=== PATIENT | female | born 1975 | race African-American/Black ===

== ENCOUNTER 2025-07-16 20:51 | Inpatient (IN) | payer SELFPAY ==
[~2025-07-16 20:51] MED LIST: Iopamidol-370 76% 500 ML MDV (1 ML CHARGE) ONE
[2025-07-16 21:27] LABS: INR-International Normal Ratio 0.9; Prothrombin Time 12.6 sec (12.0-14.7)
[2025-07-16 21:28] LABS: PTT 26.5 sec (22.9-36.1)
[2025-07-16 21:31] LABS: BHCG - Serum Negative (NEGATIVE); Pregs Control Background? CLEAR/WHITE (CLR/WHITE); Pregs Control Bar Appear? YES (CONTROL BAR)
[2025-07-16 21:32] LABS: #Basophils 0.04 10x3/uL (0.0-0.2); #Eosinophils 0.13 10x3/uL (0.0-0.7); #Monocytes 0.41 10x3/uL (0.11-0.59); #Neutrophils 4.07 10x3/uL (1.40-6.50); %Basophils 0.5 % (0.0-1.0); %Eosinophils 1.8 % (0.0-10.0); %Lymphocytes 35.9 % (21.0-51.0); %Monocytes 5.6 % (0.0-10.0); %Neutrophils 55.9 % (42.0-75.0); Hematocrit 43.5 % (36.0-47.0); Hemoglobin 13.6 g/dL (12.0-16.0); Mean Corpuscular Hemoglobin 26.6 pg (27.0-31.0); Mean Corpuscular Volume 85.1 fL (78.0-98.0); Platelet Count 220 10x3/uL (130-400); Red Blood Cell (RBC) Count 5.11 mill/uL (4.20-5.40); White Blood Cell (WBC) Count 7.29 10x3/uL (4.8-10.8)
[2025-07-16 21:35] LABS: ALT (SGPT) 15 U/L (Less than 34); AST (SGOT) 20 U/L (11-34); Albumin 4.1 g/dL (3.1-4.5); Alkaline Phosphatase 71 U/L (40-110); Anion Gap 18 mmol/L (10-20); BUN (Urea Nitrogen) 11 mg/dL (7.0-18.7); Bilirubin, Total 0.3 mg/dL (0.3-1.2); Calc. Creatinine Clearance 0 mL/min (70-130); Calcium 10.1 mg/dL (7.8-10.44); Carbon Dioxide 23 mmol/L (22-29); Chloride 104 mmol/L (98-107); Globulin 4.4 g/dL (2.4-3.5); Glucose 94 mg/dL (70-105); Potassium 4.1 mmol/L (3.5-5.1); Sodium 141 mmol/L (136-145)
[2025-07-16] MEDS ORDERED: diphenhydrAMINE 50 MG/ML VIAL ONE (21:48)
[2025-07-17] MEDS ORDERED: Ondansetron PF 4 MG/2 ML Vial ONE
[2025-07-17] MEDS ORDERED: Heparin 5,000 UNITS/ML VIAL ONE (00:45)
[2025-07-17 02:23] VITALS: BMI 43.9
[2025-07-17] MEDS ORDERED: Heparin 10,000 UNITS/ 10 ML VIAL SLOW IVP SCH (03:00)
[2025-07-17] MEDS: Melatonin 3 MG TAB PO SCH (03:05)
[2025-07-17 06:50] LABS: #Basophils 0.03 10x3/uL (0.0-0.2); #Eosinophils 0.16 10x3/uL (0.0-0.7); #Monocytes 0.40 10x3/uL (0.11-0.59); #Neutrophils 2.70 10x3/uL (1.40-6.50); %Basophils 0.5 % (0.0-1.0); %Eosinophils 2.5 % (0.0-10.0); %Lymphocytes 48.3 % (21.0-51.0); %Monocytes 6.3 % (0.0-10.0); %Neutrophils 42.1 % (42.0-75.0); Hematocrit 40.1 % (36.0-47.0); Hemoglobin 12.5 g/dL (12.0-16.0); Mean Corpuscular Hemoglobin 26.9 pg (27.0-31.0); Mean Corpuscular Volume 86.2 fL (78.0-98.0); Platelet Count 193 10x3/uL (130-400); Red Blood Cell (RBC) Count 4.65 mill/uL (4.20-5.40); White Blood Cell (WBC) Count 6.40 10x3/uL (4.8-10.8)
[2025-07-17 07:07] LABS: ALT (SGPT) 11 U/L (Less than 34); AST (SGOT) 15 U/L (11-34); Albumin 3.4 g/dL (3.1-4.5); Alkaline Phosphatase 65 U/L (40-110); Anion Gap 14 mmol/L (10-20); BUN (Urea Nitrogen) 10 mg/dL (7.0-18.7); Bilirubin, Total 0.1 mg/dL (0.3-1.2); Calc. Creatinine Clearance 145 mL/min (70-130); Calcium 9.0 mg/dL (7.8-10.44); Carbon Dioxide 22 mmol/L (22-29); Chloride 106 mmol/L (98-107); Globulin 3.4 g/dL (2.4-3.5); Glucose 159 mg/dL (70-105); Potassium 4.0 mmol/L (3.5-5.1); Sodium 138 mmol/L (136-145)
[2025-07-17 07:22] LABS: PTT 243.6 sec (22.9-36.1)
[2025-07-17] MEDS: Famotidine 20 MG TAB PO SCH (08:27)
[2025-07-17] MEDS: Famotidine/PF 20 mg/2ml Vial SLOW IVP SCH (08:28)
[2025-07-17] MEDS ORDERED: Cyclobenzaprine 10 MG TAB PO PRN (08:54)
[2025-07-17] MEDS: Senokot S 8.6-50 MG TAB PO SCH (09:31)
[2025-07-17] MEDS: Ondansetron PF 4 MG/2 ML Vial IVP PRN (11:51)
[2025-07-17] MEDS: HYDROcodone/Acetaminophen 5/325 mg Tablet PO PRN (15:37)
[2025-07-18] MEDS: Acetaminophen 325 MG TAB PO PRN (03:31)
[2025-07-18 07:14] LABS: #Basophils Less than 0.03 10x3/uL (0.0-0.2); #Eosinophils 0.11 10x3/uL (0.0-0.7); #Monocytes 0.34 10x3/uL (0.11-0.59); #Neutrophils 2.53 10x3/uL (1.40-6.50); %Basophils 0.4 % (0.0-1.0); %Eosinophils 2.1 % (0.0-10.0); %Lymphocytes 42.9 % (21.0-51.0); %Monocytes 6.5 % (0.0-10.0); %Neutrophils 47.9 % (42.0-75.0); Hematocrit 45.2 % (36.0-47.0); Hemoglobin 13.6 g/dL (12.0-16.0); Mean Corpuscular Hemoglobin 26.5 pg (27.0-31.0); Mean Corpuscular Volume 88.1 fL (78.0-98.0); Platelet Count 182 10x3/uL (130-400); Red Blood Cell (RBC) Count 5.13 mill/uL (4.20-5.40); White Blood Cell (WBC) Count 5.27 10x3/uL (4.8-10.8)
[2025-07-18 07:38] LABS: Anion Gap 14 mmol/L (10-20); BUN (Urea Nitrogen) 7 mg/dL (7.0-18.7); Calc. Creatinine Clearance 139 mL/min (70-130); Calcium 9.2 mg/dL (7.8-10.44); Carbon Dioxide 24 mmol/L (22-29); Chloride 107 mmol/L (98-107); Glucose 110 mg/dL (70-105); Potassium 4.8 mmol/L (3.5-5.1); Sodium 140 mmol/L (136-145)
[2025-07-18] MEDS: FLU (Fluarix Triv) 25-26 (6MOS UP)/PF 45 MCG/0.5 ML Syringe IM ONE (10:15)
[2025-07-18] MEDS: Fioricet 325/50/40 mg Tablet PO PRN (17:32)
[2025-07-19 05:21] LABS: Hematocrit 43.5 % (36.0-47.0); Hemoglobin 13.2 g/dL (12.0-16.0); Platelet Count 214 10x3/uL (130-400)
[2025-07-19 12:13] LABS: EliA APS New Method **** NEW METHOD ****; beta-2-Glycoprotein I IgA Ab 1.4 U/mL (<7 Negative); beta-2-Glycoprotein I IgG Ab Less than 0.8 U/mL (<7 Negative); beta-2-Glycoprotein I IgM Abs Less than 2.4 U/mL (<7 Negative)
[2025-07-19 16:01] VITALS: BP 128/77; TEMP 98.2
== END 2025-07-19 17:53 | disposition home or self-care (01) | DRG 300 ==
LOC: ERS 20:51 → T4-A 07-17 00:21 → OBSVTOIN 07-19 08:26
PROVIDERS: ADMIT Internal Medicine; ATTEND Hospitalist
DX: I82.4Y1 Acute embolism and thrombosis of unspecified deep veins of right proximal lower extremity (principal); D68.59 Other primary thrombophilia; Z68.41 Body mass index [BMI] 40.0-44.9, adult; I82.411 Acute embolism and thrombosis of right femoral vein; Z86.711 Personal history of pulmonary embolism; Z79.01 Long term (current) use of anticoagulants; E66.9 Obesity, unspecified; Z98.51 Tubal ligation status; Z23 Encounter for immunization; I27.20 Pulmonary hypertension, unspecified; R51.9 Headache, unspecified
CPT/HCPCS: 36415; 71045; 71275; 80048; 80053; 81240; 81241; 83880; 84484; 84703; 85014; 85018; 85025; 85049; 85306; 85610; 85730; 86146; 86147; 93005; 93306; 93970; 96365; 96366; 96372; 96375; 96376; G0378; J1200; J1308; J1644; J1650; J2270; J2272; J2405; Q0162; Q9967